=== PATIENT | male | born 1955 | race American Indian/Alaskan Native ===

== ENCOUNTER 2022-07-16 09:19 | Emergency (ER) | payer MEDICARE, OTHER ==
[2022-07-16 09:29] VITALS: BP 154/80; PULSE 81
== END 2022-07-16 10:14 | disposition home or self-care (01) ==
LOC: VM.ED 09:19
DX: S60.221A Contusion of right hand, initial encounter (principal); E78.00 Pure hypercholesterolemia, unspecified; Z79.82 Long term (current) use of aspirin; W00.0XXA Fall on same level due to ice and snow, initial encounter
CPT/HCPCS: 73130-RT; 99283